=== PATIENT | female | born 1970 | race American Indian/Alaskan Native ===

== ENCOUNTER 2020-05-06 19:50 | Emergency (ER) | payer BC ==
[2020-05-06 21:36] LABS: Basophils % (Auto) 0.4 % (0.0-1.8); Eosinophils # (Auto) 0.3 K/mm3 (0.0-0.4); Eosinophils % (Auto) 3.5 % (0.0-4.3); Hematocrit 34.4 % (30.3-42.9); Hemoglobin 11.3 gm/dl (10.1-14.3); Lymphocytes # (Auto) 2.2 K/mm3 (1.2-5.4); Lymphocytes % (Auto) 25.6 % (13.4-35.0); Mean Corpuscular HGB Conc 33 % (30-34); Mean Corpuscular Volume 80 fl (79-97); Monocytes # (Auto) 0.7 K/mm3 (0.0-0.8); Monocytes % (Auto) 8.4 % (0.0-7.3); Platelet Count 348 K/mm3 (140-440); Red Cell Distribution Width 17.7 % (13.2-15.2)
[2020-05-06] MEDS ORDERED: ACETAMINOPHEN 325 MG TAB PO ONE (21:51)
[2020-05-06] MEDS ORDERED: IBUPROFEN 400 MG TAB PO ONE (21:51)
--- NOTE | 2020-05-06 21:51 | Emergency Department Report ---
ED General Adult HPI - General Chief complaint: Dizziness Stated complaint: VAG BLEEDING,LIGHT HEADED PUI?: No Time Seen by Provider: 05/06/20 21:39 Source: patient, RN notes reviewed Mode of arrival: Ambulatory Limitations: No Limitations - History of Present Illness Initial comments: The patient was evaluated in the emergency department for symptoms described in the history of present illness. He/she was evaluated in the context of the global COVID-19 pandemic, which necessitated consideration that the patient might be at risk for infection with the virus that causes COVID-19. Institutional protocols and algorithms that pertain to the evaluation of patients at risk for COVID-19 are in a state of rapid change based on information released by regulatory bodies including the CDC and federal and state organizations. These policies and algorithms were followed during the patient's care in the emergency department. Please note that these policies, procedures and recommendations changed on a rapid basis. During the entire history and physical, I am chaperoned/escorted by nurse KATI VALERO Patient is a 49-year-old female. She is not known to myself previously. She denies chronic medical conditions. She denies a history of abdominal surgeries. She is seeing a new primary care doctor/top lift trimmer this week. She presents to the ER with a complaint of intermittent crampy vaginal bleeding. She has been having irregular menstruation for the past few months. She denies headache, neck pain, chest pain, shortness of breath, dysuria, focal simile weakness and or numbness. She has been bleeding for the past 10 days. Prior to this, her last irregular menstruation was about a month and a half ago. She is not sure if she is going through menopause. She feels little bit lightheaded, but has not passed out. She has mild crampy lower abdominal pain. Her bleeding has been intermittent for the past 10 days she has been having large clots and small clots. She denies vomiting blood and defecation of blood. -: days(s) Location: abdomen Radiation: non-radiation Quality: aching Consistency: intermittent Improves with: rest Worsens with: none - Related Data Allergies Allergy/AdvReac Type Severity Reaction Status Date / Time No Known Allergies Allergy Unverified 05/06/20 20:39 ED Review of Systems ROS: Stated complaint: VAG BLEEDING,LIGHT HEADED Other details as noted in HPI Constitutional: denies: fever Eyes: denies: eye discharge ENT: denies: congestion Respiratory: denies: shortness of breath Cardiovascular: denies: chest pain Gastrointestinal: denies: nausea, vomiting, diarrhea, constipation, hematemesis, melena Genitourinary: abnormal menses Musculoskeletal: denies: back pain Psychiatric: anxiety Hematological/Lymphatic: denies: easy bleeding ED Past Medical Hx - Past Medical History Previous Medical History?: No - Surgical History Past Surgical History?: No - Social History Smoking Status: Never Smoker Substance Use Type: None ED Physical Exam - General Limitations: No Limitations General appearance: alert, in no apparent distress, obese - Head Head exam: Present: atraumatic, normocephalic - Eye Eye exam: Present: normal appearance, EOMI. Absent: nystagmus - ENT ENT exam: Present: normal exam, normal orophraynx, mucous membranes moist, normal external ear exam - Neck Neck exam: Present: normal inspection, full ROM. Absent: tenderness, meningismus - Respiratory Respiratory exam: Present: normal lung sounds bilaterally. Absent: respiratory distress, wheezes, rales, rhonchi, stridor - Cardiovascular Cardiovascular Exam: Present: regular rate, normal rhythm, normal heart sounds. Absent: bradycardia, tachycardia, irregular rhythm, systolic murmur, diastolic murmur, rubs, gallop - GI/Abdominal GI/Abdominal exam: Present: soft, normal bowel sounds, other (There is no abdominal tenderness when the patient is distracted. Firm uterus is palpated. There is no uterine tenderness.). Absent: distended, tenderness, guarding, rebound, rigid, pulsatile mass - External exam: Present: normal external exam, bleeding (Minimal bleeding is noted without large clots), other (Chaperoned by KATI Nicolas). Absent: erythema, swelling, lesions, lacerations, ecchymosis - Extremities Exam Extremities exam: Present: normal inspection, full ROM, other (2+ pulses noted in the bilateral upper and lower extremities. There is no palpable cord. negative Homans sign. Muscular compartments are soft. The pelvis is stable.). Absent: pedal edema, calf tenderness - Back Exam Back exam: Present: normal inspection, full ROM. Absent: tenderness, CVA tenderness (R), CVA tenderness (L), paraspinal tenderness, vertebral tenderness - Neurological Exam Neurological exam: Present: alert, oriented X3, normal gait, other (No facial droop. Tongue midline. Extraocular movements intact bilaterally. Facial sensation intact to light touch in V1, V2, V3 distribution bilaterally. 5 and a 5 strength in 4 extremities. Sensation intact to light touch in 4 extremities.). Absent: motor sensory deficit - Psychiatric Psychiatric exam: Present: anxious - Skin Skin exam: Present: warm, dry, intact, normal color. Absent: rash ED Course Vital Signs 05/06/20 20:34 Temperature 97.9 F Pulse Rate 77 Respiratory 16 Rate Blood Pressure 134/84 O2 Sat by Pulse 100 Oximetry ED Medical Decision Making - Lab Data Result diagrams: 05/06/20 20:43 Vital Signs 05/06/20 20:34 Temperature 97.9 F Pulse Rate 77 Respiratory 16 Rate Blood Pressure 134/84 O2 Sat by Pulse 100 Oximetry Lab Results 05/06/20 05/06/20 05/06/20 Range/Units 20:43 20:43 20:43 WBC 8.7 (4.5-11.0) K/mm3 RBC 4.30 (3.65-5.03) M/mm3 Hgb 11.3 (10.1-14.3) gm/dl Hct 34.4 (30.3-42.9) % MCV 80 (79-97) fl MCH 26 L (28-32) pg MCHC 33 (30-34) % RDW 17.7 H (13.2-15.2) % Plt Count 348 (140-440) K/mm3 Lymph % (Auto) 25.6 (13.4-35.0) % Gates % (Auto) 8.4 H (0.0-7.3) % Eos % (Auto) 3.5 (0.0-4.3) % Baso % (Auto) 0.4 (0.0-1.8) % Lymph # 2.2 (1.2-5.4) K/mm3 Gates # 0.7 (0.0-0.8) K/mm3 Eos # 0.3 (0.0-0.4) K/mm3 Baso # 0.0 (0.0-0.1) K/mm3 Seg Neutrophils % 62.1 (40.0-70.0) % Seg Neutrophils # 5.4 (1.8-7.7) K/mm3 HCG, Quant < 2 (0-4) mIU/mL Blood Type A POSITIVE - EKG Data -: EKG Interpreted by Me EKG shows normal: sinus rhythm Rate: normal - EKG Data When compared to previous EKG there are: previous EKG unavailable 05/06/20 22:38 Sinus rhythm, 65 bpm, there is a normal axis, the QTC is 440 ms, there is left ventricular hypertrophy V3/V4, there is minimal motion artifact, the EKG is not a STEMI. - Medical Decision Making Differential diagnosis, including but not limited to: Fibroids, menopause, dysfunctional uterine bleeding Assessment and plan: 49-year-old female, who is afebrile, with reassuring vital signs, with no significant abdominal tenderness, who is not , has m inimal vaginal bleeding on exam, with unremarkable hemoglobin, hematocrit, not , no abdominal tenderness. Suspect that patient has fibroids, dysfunctional uterine bleeding, or menopause. Counseled patient that she does not appear to have an emergent medical condition at this time. The patient states she is going to follow-up with a primary care doctor/DRIVER doctor later on this week. She can return if/when her clinical condition worsens. However, at this point in time, she is suitable to follow-up as an outpatient. Critical care attestation.: If time is entered above; I have spent that time in minutes in the direct care of this critically ill patient, excluding procedure time. ED Disposition Clinical Impression: Vaginal bleeding Disposition: DC-01 TO HOME OR SELFCARE Is pt being admited?: No Does the pt Need Aspirin: No Condition: Stable Instructions: Menopause (ED) Additional Instructions: Patient may take Tylenol [id number], 650 mg by mouth, every 4-6 hours as needed for pain, alternating with ibuprofen, 400 mg by mouth with food, every 6 hours as needed for pain. Patient may continue to bleed, she is likely going through menopause. Patient may experience symptoms of cramping, hot flashes, and intermittent bleeding. The patient should follow-up with an DRIVER doctor within the next week. Please return to the emergency room right away with new pain, worsening pain, migration of pain, projectile vomiting, change in mental status, confusion, loss of consciousness, bleeding more than 2 pads soaked per hour, lightheadedness/passing out, or any new, worsened or different symptoms not present on the initial emergency room evaluation. Referrals: [facility] [Provider Group] - 3-5 Days [facility] [Provider Group] - 3-5 Days [facility] [Provider Group] - 3-5 Days
[2020-05-06 22:48] VITALS: BP 130/88
== END 2020-05-06 23:00 | disposition home or self-care (01) ==
LOC: ED 19:50
DX: N93.9 Abnormal uterine and vaginal bleeding, unspecified (principal); R10.30 Lower abdominal pain, unspecified; R42 Dizziness and giddiness
CPT/HCPCS: 36415; 84702; 85025; 86900; 86901; 93005